=== PATIENT | female | born 1950 | race Caucasian/White ===

== ENCOUNTER 2017-10-18 08:09 | Outpatient (CLI) | payer MEDICARE, OTHER | END 2017-10-18 08:10 | disposition home or self-care (01) | LOC: BICMAMMO 08:09 | PROVIDERS: ATTEND Family Medicine | DX: Z12.31 Encounter for screening mammogram for malignant neoplasm of breast (principal); R92.1 Mammographic calcification found on diagnostic imaging of breast | CPT/HCPCS: G0204; G0279; 77066 ==